=== PATIENT | male | born 1965 | race American Indian/Alaskan Native ===

== ENCOUNTER 2017-07-26 08:11 | Outpatient (CLI) | payer OTHER ==
--- NOTE | 2017-07-27 10:13 | Vascular Lab Report ---
RENAL ARTERY DUPLEX EXAM: REASON FOR EXAM: Hypertension. NOTE: Visualization is technically adequate. COMMENTS ON THE AORTA: The aorta is patent. Elevated flow velocities are observed. No aneurysmal dilatation is noted. Mild atherosclerotic change is identified. The celiac artery is patent with slightly high flow velocity. The superior mesenteric artery is patent with slightly elevated flow velocity. COMMENTS ON THE RIGHT KIDNEY: The kidney measures 11 centimeters in greatest dimension. No obvious parenchymal abnormalities are noted. The renal artery is patent. Maximum systolic velocity is 122 cm/sec. This finding is consistent with less than 60% diameter reduction. Renal aortic index is not obtained due to elevated aortic velocities. Overall findings are consistent with less than 60% diameter reduction in the renal artery. COMMENTS ON THE LEFT KIDNEY: The kidney measures 10.3 centimeters in greatest dimension. No obvious parenchymal abnormalities are noted. The renal artery is patent. Maximum systolic velocity is 90 cm/sec. This finding is consistent with less than 60% diameter reduction. Renal aortic index is not obtained due to elevated aortic velocities. Overall findings are consistent with less than 60% diameter reduction in the renal artery. IMPRESSION: RIGHT KIDNEY: Less than 60% diameter reduction in the renal artery. LEFT KIDNEY: Less than 60% diameter reduction in the renal artery. Slightly elevated velocity in the aorta and mesenteric vessels. Clinical significance isn't certain. Clinical correlation is recommended
== END 2017-07-26 08:12 | disposition home or self-care (01) ==
LOC: VAS 08:11
PROVIDERS: ATTEND Internal Medicine Nephrology
DX: I10 Essential (primary) hypertension (principal)
CPT/HCPCS: 93975

== ENCOUNTER 2017-08-29 06:05 | Day surgery (SDC) | payer OTHER ==
[~2017-08-29 06:05] MED LIST: ANCEF/STERILE WATER 2 GM/20 ML IV NR; MARCAINE 0.25% INFILTRATI ONE
[2017-08-29] MEDS ORDERED: NACL BACTERIOSTATIC INFILTRATI ONE (06:40)
[2017-08-29] MEDS ORDERED: XYLOCAINE MPF 2% ONE ×2 (06:44→07:16)
[2017-08-29] MEDS ORDERED: XYLOCAINE 2%/ EPI 1:200,000 INFILTRATI ONE (06:47)
[2017-08-29] MEDS ORDERED: ADRENALIN ONE ×2 (06:47→06:53)
[2017-08-29] MEDS ORDERED: MARCAINE 0.25% INFILTRATI ONE (06:47)
[2017-08-29] MEDS ORDERED: MARCAINE 0.5% 30 ML INFILTRATI ONE (06:52)
[2017-08-29] MEDS ORDERED: SUBLIMAZE ONE ×2 (06:54→07:16)
[2017-08-29] MEDS ORDERED: VERSED IV NR (07:00)
[2017-08-29] MEDS ORDERED: LACTATED RINGERS 1,000 ML IV SCH (07:00)
[2017-08-29] MEDS ORDERED: PEPCID PO NR (07:00)
[2017-08-29] MEDS ORDERED: DIPRIVAN 10 MG/ML IV ONE (07:16)
[2017-08-29] MEDS ORDERED: QUELICIN ONE (07:16)
--- NOTE | 2017-08-29 07:19 | Anesthesia Day of Surgery ---
Anesthesia Day of Surgery - Day of Surgery Patient Examined: Yes Patient H&P Reviewed: Yes Patient is NPO: Yes
--- NOTE | 2017-08-29 07:19 | Anesthesia Consultation ---
Anesthesia Consult and Med Hx Date of service: 08/29/17 - Airway Anesthetic Teeth Evaluation: Good ROM Head & Neck: Adequate Mental/Hyoid Distance: Adequate Mallampati Class: Class II Intubation Access Assessment: Probably Good - Pulmonary Exam CTA: Yes - Cardiac Exam Cardiac Exam: RRR - Pre-Operative Health Status ASA Pre-Surgery Classification: ASA3 Proposed Anesthetic Plan: General Nerve Block: interscalene - Pulmonary Hx Smoking: No Hx Asthma: Yes (INHALER PRN) COPD: No Hx Pneumonia: No Hx Sleep Apnea: No (CHANNING PRE SCREEN HIGH RISK) - Cardiovascular System Hx Hypertension: Yes (2013) - Endocrine Hx End Stage Renal Disease: No - Other Systems Hx Cancer: No
[2017-08-29] MEDS ORDERED: DILAUDID IV PRN (07:20)
[2017-08-29] MEDS ORDERED: ADRENALIN IV ONE (08:18)
[2017-08-29] MEDS ORDERED: ZOFRAN IV PRN (08:30)
[2017-08-29] MEDS ORDERED: PERCOCET 5/325 PO PRN (08:30)
[2017-08-29] MEDS ORDERED: SUBLIMAZE IV ONE (08:30)
[2017-08-29] MEDS ORDERED: NACL P/F VIAL (10 ML) 10 ML ONE ×2 (08:56)
[2017-08-29] MEDS ORDERED: ZOFRAN ONE (09:41)
[2017-08-29] MEDS ORDERED: DECADRON ONE (09:41)
--- NOTE | 2017-08-29 09:50 | Short Stay Summary ---
Short Stay Documentation Date of service: 08/29/17 - Allergies and Medications Current Medications: Allergies No Known Allergies Allergy (Verified 09/03/16 17:46) Home Medications Medication Instructions Recorded Confirmed Last Taken Type Multivitamin Tab [Multiple Vitamin 1 each PO QDAY 09/03/16 08/23/17 08/28/17 History TAB (Theragran)] Hydrochlorothiazide [HCTZ] 25 mg PO QDAY #30 tablet 09/04/16 08/23/17 08/28/17 Rx NIFEdipine XL [Procardia Xl] 90 mg PO Q12HR #60 tablet 09/04/16 08/23/17 Rx ALBUTEROL Inhaler [Proair] 2 puff IH QID PRN 08/23/17 08/23/17 08/28/17 History Vitamin B Complex [Super B-50 1 cap PO DAILY 08/23/17 08/23/17 08/28/17 History Complex] cloNIDine [Catapres] 0.2 mg PO TID 08/23/17 08/23/17 08/28/17 History Active Medications Cefazolin Sodium (Ancef/Sterile Water 2 Gm/20 Ml) 2 gm IV PREOP NR Stop: 08/29/17 23:59 Famotidine (Pepcid) 20 mg PO PREOP NR Stop: 08/29/17 23:01 Last Admin: 08/29/17 06:55 Dose: 20 mg Hydromorphone HCl (Dilaudid) 0.5 mg IV Q10MIN PRN PRN Reason: Pain , Severe (7-10) Stop: 08/29/17 12:00 Lactated Ringer's (Lactated Ringers) 1,000 mls @ 100 mls/hr IV DIRECT ANGELITA Last Admin: 08/29/17 07:00 Dose: 100 mls/hr Midazolam HCl (Versed) 2 mg IV PREOP NR Stop: 08/29/17 23:01 Last Admin: 08/29/17 07:08 Dose: 2 mg Short Stay Discharge Plan Activity: advance as tolerated Weight Bearing Status: Non-Weight Bearing Diet: regular Wound: keep clean and dry, change dressing, per your surgeon's advice Special Instructions: no heavy lifting, physical therapy Additional Instructions: follow DC instruction sheet take pain meds provided at office PRN PAIN ARM SLING WITH PILLOW AT ALL TIMES Follow up with: ELAINE ESTRADA DO [Primary Care Provider] - 7 Days KARL VALE MD [Staff Physician] - 14 Days
[2017-08-29] MEDS ORDERED: LOPRESSOR IV ONE (10:09)
[2017-08-29] MEDS ORDERED: DEMEROL ONE (10:12)
[2017-08-29] MEDS ORDERED: APRESOLINE ONE (10:20)
[2017-08-29] MEDS ORDERED: DEMEROL IV PRN (10:30)
[2017-08-29] MEDS ORDERED: APRESOLINE IV NR (11:00)
--- NOTE | 2017-08-29 11:06 | Post Anesthesia Evaluation ---
- Post Anesthesia Evaluation Patient Participated: Yes Airway Patent: Yes Stable Respiratory Function: Yes Temp > 96.8F: Yes Pain Manageable: Yes Adequeate Hydration: Yes Anesthesia Complications: No
--- NOTE | 2017-08-29 11:34 | Operative Report ---
PREOPERATIVE DIAGNOSES: 1. Severe and large massive rotator cuff tear, left shoulder. 2. Impingement syndrome, left shoulder. 3. Osteoarthritis, left shoulder region. POSTOPERATIVE DIAGNOSES: 1. Large and massive rotator cuff tear, left shoulder, supraspinatus and anterior infraspinatus. 2. Impingement syndrome with subacromial bursitis, left shoulder. 3. Osteoarthritis of the left shoulder joint with fraying of the labral tissue with synovitis, synovial proliferation of the left shoulder region. PROCEDURES PERFORMED: 1. Left shoulder arthroscopy, with massive rotator cuff repair, complex. 2. Subacromial decompression, left shoulder. 3. Debridement of the left shoulder joint region. SURGEON: Forest Mccloud M.D. HEEL TURNER: Moses Boo, Quofore tech and Pina operative tech as well. COMPLICATIONS: None. BRIEF HISTORY: The patient has a painful left shoulder, failed conservative treatment, opted for surgical intervention. Risk and benefit discussed, informed consent obtained, brought to the hospital for the above procedure. DETAILS OF THE OPERATIVE REPORT: The patient was taken to the operating room. After smooth general anesthesia, the patient was placed on the beach chair position, all the bony prominences were carefully padded. Left shoulder and left upper extremity prepped and draped in sterile fashion and anatomical landmarks were drawn out. A timeout was performed. The patient was given 2 grams Ancef half an hour before the procedure. Standard posterior portal was created. Arthroscope introduced under direct visualization, anterosuperior portal was created. We noticed osteoarthritic changes in the glenohumeral joint, more on the glenoid side about grade 2 plus throughout. There was some fraying of the labrum and synovial hypertrophy and proliferation noticed with some synovitis. Synovial resectors were used to perform necessary debridement and wand was used for ____ inflammation of the synovium and synovitis along with the shaver. We noticed there was significant tear on the supraspinatus and anterior infraspinatus and the rotator cuff tear was tagged. Next, once necessary debridement was performed, glenohumeral joint, necessary pictures were taken. Biceps was intact as such. The subscapularis was intact with minimal degenerative changes though. Attention was then drawn on the subacromial space, we noted significant subacromial bursitis and bursal hypertrophy and thick tissue. Under direct visualization, lateral portal was created. Synovial resector and wand was used to perform necessary subacromial decompression. Once this was done, next subacromial decompression was done, attention was drawn on the rotator cuff area, significant bursitis and synovial proliferation was present and all extensive bursectomy was performed with extensive subacromial decompression. There was no significant bone hanging in the AC joint as such. Since the patient had a large rotator cuff tear and massive tear, we decided to leave the coracoacromial ligament to better put for as a supporting structure. Rotator cuff tear was identified, necessary debridement was performed at the area. Footprint was prepared. We made an accessory portal superolaterally to get a better angle for the medial anchor, we decided to put two medial and two lateral rows. Two medial anchors were placed and SwiveLock anchor, self-punching 4.75 and FiberTape was each port loaded with 2 FiberTapes. FiberTapes were then over anterior and posterior and medial. Two medial anchors were placed through an accessory portal and proper angle and FiberTapes were passed through the rotator cuff with a scorpion passer in a horizontal mattress fashion. Four strands were delivered out from anterior to posterior well spaced. We decided to crisscross, bring the sutures. To get a better coverage, we laid the suture. We pulled the rotator cuff after the sutures were passed. We pulled the sutures down towards the lateral side and we got great coverage and excellent repair. We crisscrossed the sutures and placed 2 from anterior to posterior. We numbered sutures from 1, 2, 3 and 4, and 2 and 4 were brought laterally and anchored posteriorly and 1 and 3 were brought anteriorly and anchored into the anterior lateral aspect. Two lateral row anchors were placed. While self-punching SwiveLock anchors were placed laterally as well, we had great repair, excellent reconstruction. The whole cuff move as a unit. Synovial resector was then used after the excellent repair to remove the debris off the subacromial space. Fluid was then suctioned out. Necessary pictures were taken. Portal sites closed with 3-0 nylon interrupted sutures and infiltrated with Marcaine plain. Dressing was done with Xeroform, 4 x 4s, ABD, paper tape and abduction arm sling support was applied. The patient tolerated the procedure well, shifted to recovery room in stable condition. Sponge and needle count was correct. JOB# [id number] SCOT/BELKYS
[2017-08-29 14:20] VITALS: BP 158/91
== END 2017-08-29 12:40 | disposition home or self-care (01) ==
LOC: OR 06:05
PROVIDERS: ATTEND Orthopaedic Surgery
DX: S46.012A Strain of muscle(s) and tendon(s) of the rotator cuff of left shoulder, initial encounter (principal); M19.012 Primary osteoarthritis, left shoulder; M75.42 Impingement syndrome of left shoulder; M65.812 Other synovitis and tenosynovitis, left shoulder; M94.8X1 Other specified disorders of cartilage, shoulder; M75.52 Bursitis of left shoulder; J45.909 Unspecified asthma, uncomplicated; I10 Essential (primary) hypertension; Z79.899 Other long term (current) drug therapy; X58.XXXA Exposure to other specified factors, initial encounter; Y93.89 Activity, other specified; Y92.89 Other specified places as the place of occurrence of the external cause
CPT/HCPCS: 29822; 29826; 29827; 86850; 86900; 86901; C1713; J0171; J0330; J0360; J0690; J1100; J2175; J2250; J2405; J2704; J3010; J7120